=== PATIENT | male | born 1985 | race American Indian/Alaskan Native ===

== ENCOUNTER 2019-08-01 03:29 | Emergency (ER) | payer SELFPAY ==
[2019-08-01 03:47] VITALS: BP 112/80
== END 2019-08-01 04:00 | disposition left against medical advice (07) ==
LOC: ED 03:29
DX: R51 Headache (principal); R42 Dizziness and giddiness; Z53.21 Procedure and treatment not carried out due to patient leaving prior to being seen by health care provider

== ENCOUNTER 2019-09-21 07:38 | Emergency (ER) | payer SELFPAY ==
[2019-09-21 07:44] VITALS: BP 133/83
== END 2019-09-21 08:55 | disposition left against medical advice (07) ==
LOC: ED 07:38
DX: G43.909 Migraine, unspecified, not intractable, without status migrainosus (principal); Z53.21 Procedure and treatment not carried out due to patient leaving prior to being seen by health care provider

== ENCOUNTER 2019-09-23 01:15 | Emergency (ER) | payer SELFPAY ==
[2019-09-23] MEDS ORDERED: LORazepam 2 MG/ML VIAL IM PRN (01:49)
[2019-09-23] MEDS ORDERED: HALOPERIDOL LACTATE 5 MG/1 ML INJ IM PRN (01:49)
--- NOTE | 2019-09-23 01:57 | Emergency Department Report ---
<FRANK BOURGEOIS - Last Filed: 09/23/19 03:45> ED General Adult HPI - General Chief complaint: Psych Stated complaint: SUICIDAL THOUGHTS Time Seen by Provider: 09/23/19 01:39 - Related Data Home Medications Medication Instructions Recorded Confirmed Last Taken No Known Home Medications [No 09/23/19 09/23/19 Unknown Reported Home Medications] Allergies Allergy/AdvReac Type Severity Reaction Status Date / Time No Known Allergies Allergy Unverified 05/09/15 17:08 ED Past Medical Hx - Medications Home Medications: Home Medications Medication Instructions Recorded Confirmed Last Taken Type No Known Home Medications [No 09/23/19 09/23/19 Unknown History Reported Home Medications] ED Medical Decision Making - Lab Data Result diagrams: 09/23/19 02:01 09/23/19 02:01 - Medical Decision Making I have reviewed the labs obtained. CBC chemistry serum toxicology all within normal limits. Urinalysis contaminated sample without overt indication urinary tract infection. Urine toxicology screen positive for amphetamine. Mr. Sarabia is medically clear for psychiatric care. Awaiting treatment recommendations by our psychiatric team. ED Disposition Clinical Impression: General medical exam, Mood disorder Disposition: DC-01 TO HOME OR SELFCARE Condition: Stable Referrals: PRIMARY CARE, [Primary Care Provider] - 3-5 Days <ALFONZO BOWER - Last Filed: 09/24/19 04:16> ED General Adult HPI - General Source: patient, RN notes reviewed, old records reviewed Mode of arrival: Ambulatory Limitations: Other (Patient is quiet, withdrawn, not forthcoming) - History of Present Illness Initial comments: This is a 33-year-old gentleman. This patient is not known to myself prev iously. He presented to triage with a complaint of suicidality. The patient denies physical pain. He indicated to me that he was feeling suicidal. He will not comment on overdose, access to guns or firearms. He is very quiet, sullen and withdrawn. He will not describe exacerbating or relieving factors. He indicated to other members of the nursing team that he was also feeling suicidal. He has not been physically violent. He is not accompanied by friends or family. When asked if there is something that he would particularly like help with, he states "I just do not know." -: unknown Quality: other Consistency: other Improves with: other Worsens with: other ED Review of Systems ROS: Stated complaint: SUICIDAL THOUGHTS Other details as noted in HPI Comment: Sullen and withdrawn Constitutional: see HPI Eyes: as per HPI ENT: as per HPI Respiratory: see HPI Cardiovascular: as per HPI Endocrine: see HPI Gastrointestinal: as per HPI Genitourinary: as per HPI Musculoskeletal: as per HPI Skin: as per HPI Neurological: as per HPI Psychiatric: depression, suicidal thoughts ED Past Medical Hx - Past Medical History Previous Medical History?: Yes Hx Hypertension: No Hx CVA: No Hx Heart Attack/AMI: No Hx Congestive Heart Failure: No Hx Diabetes: No Hx Deep Vein Thrombosis: No Hx Pulmonary Embolism: Yes Hx GERD: No Hx Arthritis: No Hx Headaches / Migraines: Yes Hx Psychiatric Treatment: Yes (depress) Hx Asthma: No Hx COPD: No Hx Dementia: No Hx HIV: No - Surgical History Past Surgical History?: No - Social History Smoking Status: Current Every Day Smoker Substance Use Type: Alcohol ED Physical Exam - General Limitations: Other (Patient not forthcoming) General appearance: alert - Head Head exam: Present: atraumatic, normocephalic - Eye Eye exam: Present: normal appearance, EOMI, other (Visual acuity intact to finger counting and color perception at close distance). Absent: nystagmus - ENT ENT exam: Present: normal exam, normal orophraynx, mucous membranes moist, normal external ear exam - Neck Neck exam: Present: normal inspection, full ROM. Absent: tenderness - Respiratory Respiratory exam: Present: normal lung sounds bilaterally. Absent: respiratory distress - Cardiovascular Cardiovascular Exam: Present: regular rate, normal rhythm, normal heart sounds. Absent: bradycardia, tachycardia, irregular rhythm, systolic murmur, diastolic murmur, rubs, gallop - GI/Abdominal GI/Abdominal exam: Present: soft. Absent: distended, tenderness, guarding, rebound, rigid, pulsatile mass - Rectal Rectal exam: Present: deferred - Extremities Exam Extremities exam: Present: normal inspection, full ROM, other (2+ pulses noted in the bilateral upper and lower extremities. There is no palpable cord. negative Homans sign. Muscular compartments are soft. The pelvis is stable.). Absent: pedal edema, calf tenderness - Back Exam Back exam: Present: normal inspection, full ROM. Absent: tenderness, CVA tenderness (R), CVA tenderness (L), paraspinal tenderness, vertebral tenderness - Neurological Exam Neurological exam: Present: alert, normal gait, other (There is no facial droop. The tongue is midline. Extraocular movements are intact bilaterally. There is 5 out of 5 strength in bilateral upper and lower extremities. Sensation is intact to light touch bilateral upper and lower extremities. There is a normal gait.). Absent: motor sensory deficit - Psychiatric Psychiatric exam: Present: flat affect, suicidal ideation - Skin Skin exam: Present: warm, dry, intact, normal color. Absent: rash ED Course Vital Signs 09/23/19 09/23/19 01:23 08:38 Temperature 98.4 F 98.3 F Pulse Rate 92 H 83 Respiratory 18 18 Rate Blood Pressure 135/98 Blood Pressure 134/78 [Left] O2 Sat by Pulse 98 96 Oximetry - Reevaluation(s) Reevaluation #1: 09/23/19 01:56 Differential diagnosis, including but not limited to: Suicidality, mood disorder, dysthymia, medical clearance for psychiatric placement Assessment and plan: 33-year-old gentleman endorsing suicidality, sullen, withdrawn, not forthcoming about his particular set of circumstances, appears very quiet, he does not demonstrate the ability to care for himself indep endently, and he has endorsed to multiple nursing members that he is feeling suicidal. Psychiatric consultation is requested. Basic laboratory studies ordered, EKG ordered, 1013 executed. Reevaluation #2: 09/23/19 03:10 labs reviewed at this point in time patient does not appear to have an immediate medical contraindication to psychiatric evaluation, consultation or placement at this time ED Medical Decision Making - Lab Data Result diagrams: 09/23/19 02:01 09/23/19 02:01 Vital Signs 09/23/19 01:23 Temperature 98.4 F Pulse Rate 92 H Respiratory 18 Rate Blood Pressure 135/98 O2 Sat by Pulse 98 Oximetry Vital Signs 09/23/19 01:23 Temperature 98.4 F Pulse Rate 92 H Respiratory 18 Rate Blood Pressure 135/98 O2 Sat by Pulse 98 Oximetry Lab Results 09/23/19 09/23/19 09/23/19 Range/Units 01:52 01:52 02:01 WBC 7.7 (4.5-11.0) K/mm3 RBC 4.52 (3.65-5.03) M/mm3 Hgb 13.6 (11.8-15.2) gm/dl Hct 41.0 (35.5-45.6) % MCV 91 (84-94) fl MCH 30 (28-32) pg MCHC 33 (32-34) % RDW 13.8 (13.2-15.2) % Plt Count 193 (140-440) K/mm3 TSH (0.270-4.200) mlU/mL Urine Color Yellow (Yellow) Urine Turbidity Clear (Clear) Urine pH 7.0 (5.0-7.0) Ur Specific [place] 1.025 (1.003-1.030) Urine Protein <15 mg/dl (Negative) mg/dL Urine Glucose (UA) Neg (Negative) mg/dL Urine Ketones Neg (Negative) mg/dL Urine Blood Neg (Negative) Urine Nitrite Neg (Negative) Urine Bilirubin Neg (Negative) Urine Urobilinogen 4.0 (<2.0) mg/dL Ur Leukocyte Esterase Tr (Negative) Urine WBC (Auto) 1.0 (0.0-6.0) /HPF Urine RBC (Auto) 2.0 (0.0-6.0) /HPF U Epithel Cells (Auto) < 1.0 (0-13.0) /HPF Urine Bacteria (Auto) 1+ (Negative) /HPF Urine Mucus 3+ /HPF Salicylates (2.8-20.0) mg/dL Urine Opiates Screen Presumptive negative Urine Methadone Screen Presumptive negative Acetaminophen (10.0-30.0) ug/mL Ur Barbiturates Screen Presumptive negative Ur Phencyclidine Scrn Presumptive negative U Benzodiazepines Scrn Presumptive negative Urine Cocaine Screen Presumptive negative U Marijuana (THC) Screen Presumptive negative Plasma/Serum Alcohol (0-0.07) % 09/23/19 09/23/19 09/23/19 Range/Units 02:01 02:01 02:01 WBC (4.5-11.0) K/mm3 RBC (3.65-5.03) M/mm3 Hgb (11.8-15.2) gm/dl Hct (35.5-45.6) % MCV (84-94) fl MCH (28-32) pg MCHC (32-34) % RDW (13.2-15.2) % Plt Count (140-440) K/mm3 TSH 0.937 (0.270-4.200) mlU/mL Urine Color (Yellow) Urine Turbidity (Clear) Urine pH (5.0-7.0) Ur Specific [place] (1.003-1.030) Urine Protein (Negative) mg/dL Urine Glucose (UA) (Negative) mg/dL Urine Ketones (Negative) mg/dL Urine Blood (Negative) Urine Nitrite (Negative) Urine Bilirubin (Negative) Urine Urobilinogen (<2.0) mg/dL Ur Leukocyte Esterase (Negative) Urine WBC (Auto) (0.0-6.0) /HPF Urine RBC (Auto) (0.0-6.0) /HPF U Epithel Cells (Auto) (0-13.0) /HPF Urine Bacteria (Auto) (Negative) /HPF Urine Mucus /HPF Salicylates < 0.3 L (2.8-20.0) mg/dL Urine Opiates Screen Urine Methadone Screen Acetaminophen < 5.0 L (10.0-30.0) ug/mL Ur Barbiturates Screen Ur Phencyclidine Scrn U Benzodiazepines Scrn Urine Cocaine Screen U Marijuana (THC) Screen Plasma/Serum Alcohol (0-0.07) % 09/23/19 Range/Units 02:01 WBC (4.5-11.0) K/mm3 RBC (3.65-5.03) M/mm3 Hgb (11.8-15.2) gm/dl Hct (35.5-45.6) % MCV (84-94) fl MCH (28-32) pg MCHC (32-34) % RDW (13.2-15.2) % Plt Count (140-440) K/mm3 TSH (0.270-4.200) mlU/mL Urine Color (Yellow) Urine Turbidity (Clear) Urine pH (5.0-7.0) Ur Specific [place] (1.003-1.030) Urine Protein (Negative) mg/dL Urine Glucose (UA) (Negative) mg/dL Urine Ketones (Negative) mg/dL Urine Blood (Negative) Urine Nitrite (Negative) Urine Bilirubin (Negative) Urine Urobilinogen (<2.0) mg/dL Ur Leukocyte Esterase (Negative) Urine WBC (Auto) (0.0-6.0) /HPF Urine RBC (Auto) (0.0-6.0) /HPF U Epithel Cells (Auto) (0-13.0) /HPF Urine Bacteria (Auto) (Negative) /HPF Urine Mucus /HPF Salicylates (2.8-20.0) mg/dL Urine Opiates Screen Urine Methadone Screen Acetaminophen (10.0-30.0) ug/mL Ur Barbiturates Screen Ur Phencyclidine Scrn U Benzodiazepines Scrn Urine Cocaine Screen U Marijuana (THC) Screen Plasma/Serum Alcohol < 0.01 (0-0.07) % - EKG Data -: EKG Interpreted by Me EKG shows normal: sinus rhythm Rate: normal - EKG Data 09/23/19 02:59 Sinus rhythm, 74 bpm, normal axis, left ventricular voltage, QTC 405 ms, motion artifact. Early repolarization, not consistent with STEMI Critical care attestation.: If time is entered above; I have spent that time in minutes in the direct care of this critically ill patient, excluding procedure time. ED Disposition Is pt being admited?: No Does the pt Need Aspirin: No
[2019-09-23 02:10] LABS: Benzodiazepines Screen,Urine PRESUMPTIVE NEGATIVE; Cannabinoid Screen,Urine PRESUMPTIVE NEGATIVE; Cocaine Screen,Urine PRESUMPTIVE NEGATIVE; Methadone Screen,Urine PRESUMPTIVE NEGATIVE; Opiate Screen,Urine PRESUMPTIVE NEGATIVE
[2019-09-23 02:11] LABS: Bacteria,Urine 1+ /HPF (Negative); Bilirubin,Urine NEG (Negative); Blood,Urine NEG (Negative); Color,Urine Yellow (Yellow); Mucus,Urine 3+ /HPF; Protein,Urine <15 mg/dL mg/dL (Negative)
[2019-09-23 02:37] LABS: Hemoglobin 13.6 gm/dl (11.8-15.2); Mean Corpuscular HGB Conc 33 % (32-34); Mean Corpuscular Volume 91 fl (84-94); Platelet Count 193 K/mm3 (140-440); Red Blood Count 4.52 M/mm3 (3.65-5.03); Red Cell Distribution Width 13.8 % (13.2-15.2)
[2019-09-23 03:08] LABS: BUN/Creatinine Ratio 16; Blood Urea Nitrogen 14 mg/dL (9-20); Calcium 9.5 mg/dL (8.4-10.2); Hemolysis Index 3
[2019-09-23 03:09] LABS: Amphetamine Screen,Urine PRESUMPTIVE POSITIVE
[2019-09-23 08:40] VITALS: BP 134/78
== END 2019-09-23 13:06 | disposition home or self-care (01) ==
LOC: ED 01:15
DX: F32.9 Major depressive disorder, single episode, unspecified (principal); F17.200 Nicotine dependence, unspecified, uncomplicated; Z86.711 Personal history of pulmonary embolism
CPT/HCPCS: 36415; 80048; 80307; 80320; 81001; 82550; 83735; 84443; 85027; 93005; 93010; G0480

== ENCOUNTER 2019-10-03 01:03 | Emergency (ER) | payer SELFPAY ==
[2019-10-03 01:17] VITALS: BP 141/77
--- NOTE | 2019-10-03 01:36 | Emergency Department Report ---
ED Headache HPI - General Chief Complaint: Headache Stated Complaint: MIGRAINE Time Seen by Provider: 10/03/19 01:32 - History of Present Illness Initial Comments: 34-year-old F [place] male with a 12 to 13-year history of migraine headaches presents emerged department complaining of a normal migraine flareup that is been present for the last several hours. Symptoms is associated with nausea states he is been having some issues with headaches off and on. Reports no fever, chills, sweats no chest pain no palpitations no blurry vision. He requested to discontinue the history taking due to him being irritated about another situation states that he feels it is fine Associated Symptoms: denies: nausea/vomiting, nasal congestion, nasal drainage, sinus infection, stiff neck, vision changes, weakness Allergies/Adverse Reactions: Allergies No Known Allergies Allergy (Verified 10/03/19 01:11) Home Medications: Ambulatory Orders Butalb/Acetaminophen/Caffeine [Fioricet 50-300-40 mg CAP] 1 cap PO Q6HR PRN #20 cap 10/03/19 ED Review of Systems ROS: Stated complaint: MIGRAINE Other details as noted in HPI Comment: All other systems reviewed and negative ED Past Medical Hx - Past Medical History Hx Hypertension: No Hx CVA: No Hx Heart Attack/AMI: No Hx Congestive Heart Failure: No Hx Diabetes: No Hx Deep Vein Thrombosis: No Hx Pulmonary Embolism: Yes Hx GERD: No Hx Arthritis: No Hx Headaches / Migraines: Yes Hx Psychiatric Treatment: Yes (depression) Hx Asthma: No Hx COPD: No Hx Dementia: No Hx HIV: No - Surgical History Past Surgical History?: No - Social History Smoking Status: Current Every Day Smoker Substance Use Type: Alcohol - Medications Home Medications: Home Medications Medication Instructions Recorded Confirmed Last Taken Type Butalb/Acetaminophen/Caffeine 1 cap PO Q6HR PRN #20 cap 10/03/19 Unknown Rx [Fioricet 50-300-40 mg CAP] ED Physical Exam - General Limitations: No Limitations General appearance: alert, in no apparent distress - Head Head exam: Present: atraumatic, normocephalic - Eye Eye exam: Present: normal appearance, PERRL, EOMI, other (Negative funduscopic examination). Absent: nystagmus Pupils: Present: normal accommodation - ENT ENT exam: Present: normal exam, normal orophraynx, mucous membranes moist - Neck Neck exam: Present: normal inspection, full ROM, other (No obvious JVD) - Respiratory Respiratory exam: Absent: respiratory distress - Cardiovascular Cardiovascular Exam: Present: regular rate, normal rhythm. Absent: systolic murmur, diastolic murmur, rubs, gallop - Rectal Rectal exam: Present: deferred - Extremities Exam Extremities exam: Present: normal inspection, full ROM - Back Exam Back exam: Present: normal inspection, full ROM - Neurological Exam Neurological exam: Present: alert, oriented X3, normal gait - Psychiatric Psychiatric exam: Present: normal affect, normal mood. Absent: homicidal ideation, suicidal ideation - Skin Skin exam: Present: warm, dry, intact, normal color. Absent: rash ED Course Vital Signs 10/03/19 01:13 Temperature 97.9 F Pulse Rate 97 H Respiratory 18 Rate Blood Pressure 141/77 O2 Sat by Pulse 97 Oximetry ED Medical Decision Making - Medical Decision Making This patient presents with a headache most consistent with migraine. Differential diagnosis includes migraine versus tension type headache. No headache red flags. Neurologic exam without evidence of meningismus, focal neurologic findings.Based on the patient's history and physical there is very low clinical suspicion for significant intracranial pathology. The headache was NOT sudden onset, NOT maximal at onset, there are NO neurologic findings, the patient does NOT have a fever, the patient does NOT have any jaw claudication, the patient does NOT endorse a clotting disorder, patient DENIES any trauma or eye pain and the headache is NOT associated with dizziness or ataxia. Presentation not consistent with acute intracranial bleed to include SAH (lack of risk factors, headache history). Presentation not consistent with acute [employer] infection to include meningitis or brain abscess, Temporal arteritis unlikely, as is acute angle closure glaucoma given history and physical findings. Presentation not consistent with other acute, emergent causes of headache at this time. Plan to treat symptomatically with pain medication. No indication for imaging/LP at this time. Plan: pain medication, CT brain deferred due to the history, serial reassessment Critical care attestation.: If time is entered above; I have spent that time in minutes in the direct care of this critically ill patient, excluding procedure time. ED Disposition Clinical Impression: Cephalgia, Migraine Disposition: DC-01 TO HOME OR SELFCARE Is pt being admited?: No Does the pt Need Aspirin: No Condition: Stable Instructions: Migraine Headache (ED), Acute Headache (ED) Prescriptions: Butalb/Acetaminophen/Caffeine [Fioricet 50-300-40 mg CAP] 1 cap PO Q6HR PRN #20 cap PRN Reason: Headache Referrals: [facility] [Provider Group] - 3-5 Days CIARA VILLALBA MD [Staff Physician] - 3-5 Days
== END 2019-10-03 02:08 | disposition home or self-care (01) ==
LOC: ED 01:03
DX: G43.909 Migraine, unspecified, not intractable, without status migrainosus (principal); F32.9 Major depressive disorder, single episode, unspecified; F17.200 Nicotine dependence, unspecified, uncomplicated; Z79.899 Other long term (current) drug therapy
CPT/HCPCS: 99281

== ENCOUNTER 2020-02-29 17:48 | Emergency (ER) | payer SELFPAY ==
--- NOTE | 2020-02-29 20:32 | Emergency Department Report ---
Blank Doc - Documentation Documentation: 34-year-old male that presents with generlized weakness, fatigue, fever, chills, and tachycardia. Pt is homeless and stated has been in the heat for the past few days. This initial assessment/diagnostic orders/clinical plan/treatment(s) is/are subject to change based on patient's health status, clinical progression and re- assessment by fellow clinical providers in the ED. Further treatment and workup at subsequent clinical providers discretion. Patient/guardians urged not to elope from the ED as their condition may be serious if not clinically assessed and managed. Initial orders include: 1- Patient sent to [facility] for further evaluation and treatment 2- labs 3- xrays
[2020-02-29] MEDS ORDERED: ACETAMINOPHEN 325 MG TAB PO ONE (20:33)
[2020-02-29] MEDS ORDERED: ACETAMINOPHEN 325 MG TAB ONE (20:34)
--- NOTE | 2020-02-29 21:19 | XRay Report ---
CHEST 2 VIEWS INDICATION / CLINICAL INFORMATION: fever/cough. COMPARISON: None available. FINDINGS: SUPPORT DEVICES: None. HEART / MEDIASTINUM: No significant abnormality. LUNGS / PLEURA: No significant pulmonary or pleural abnormality. No pneumothorax. ADDITIONAL FINDINGS: No significant additional findings. IMPRESSION: 1. No acute findings. Signer Name: Hai Dobbs MD Signed: 02/29/2020 9:15 PM Workstation Name: [id number]
[2020-02-29 21:45] LABS: Hematocrit 41.8 % (35.5-45.6); Hemoglobin 14.1 gm/dl (11.8-15.2); Mean Corpuscular HGB Conc 34 % (32-34); Mean Corpuscular Volume 92 fl (84-94); Platelet Count 169 K/mm3 (140-440); Red Blood Count 4.53 M/mm3 (3.65-5.03); Red Cell Distribution Width 13.6 % (13.2-15.2)
[2020-02-29 22:11] LABS: Alanine Aminotransferase 14 units/L (7-56); Albumin 4.6 g/dL (3.9-5); BUN/Creatinine Ratio 11; Blood Urea Nitrogen 11 mg/dL (9-20); Calcium 9.1 mg/dL (8.4-10.2); Hemolysis Index 5
--- NOTE | 2020-02-29 22:30 | Emergency Department Report ---
ED General Adult HPI - General Chief complaint: Weakness Stated complaint: HEAT EXHAUSTION Time Seen by Provider: 02/29/20 20:29 Source: patient, EMS Mode of arrival: Ambulatory Limitations: No Limitations - History of Present Illness Initial comments: 34-year-old male presents to ED with report of 2-day history of fever. Patient also reports generalized weakness, nausea and vomiting, mild cough. Patient denies shortness of breath, loss of smell or taste, diarrhea. -: days(s) (2) Severity scale (0 -10): 10 Consistency: constant Improves with: none Worsens with: none Associated Symptoms: cough, fever/chills, nausea/vomiting. denies: shortness of breath - Related Data Previous Rx's Medication Instructions Recorded Last Taken Type Butalb/Acetaminophen/Caffeine 1 cap PO Q6HR PRN #20 cap 10/03/19 Unknown Rx [Fioricet 50-300-40 mg CAP] Ondansetron [Zofran Odt] 4 mg PO Q8HR PRN #20 tab.rapdis 02/29/20 Unknown Rx Allergies Allergy/AdvReac Type Severity Reaction Status Date / Time No Known Allergies Allergy Verified 10/03/19 01:11 ED Review of Systems ROS: Stated complaint: HEAT EXHAUSTION Other details as noted in HPI Comment: All other systems reviewed and negative Constitutional: chills, fever ENT: denies: throat pain Respiratory: cough. denies: shortness of breath Gastrointestinal: abdominal pain, nausea, vomiting ED Past Medical Hx - Past Medical History Previous Medical History?: Yes Hx Hypertension: No Hx CVA: No Hx Heart Attack/AMI: No Hx Congestive Heart Failure: No Hx Diabetes: No Hx Deep Vein Thrombosis: No Hx Pulmonary Embolism: Yes Hx GERD: No Hx Arthritis: No Hx Headaches / Migraines: Yes Hx Psychiatric Treatment: Yes (depression) Hx Asthma: No Hx COPD: No Hx Dementia: No Hx HIV: No - Surgical History Past Surgical History?: No - Social History Smoking Status: Unknown if ever smoked Substance Use Type: None - Medications Home Medications: Home Medications Medication Instructions Recorded Confirmed Last Taken Type Butalb/Acetaminophen/Caffeine 1 cap PO Q6HR PRN #20 cap 10/03/19 Unknown Rx [Fioricet 50-300-40 mg CAP] Ondansetron [Zofran Odt] 4 mg PO Q8HR PRN #20 tab.rapdis 02/29/20 Unknown Rx ED Physical Exam - General Limitations: No Limitations General appearance: alert, in no apparent distress - Head Head exam: Present: atraumatic, normocephalic - Eye Eye exam: Present: normal appearance, EOMI - ENT ENT exam: Present: mucous membranes moist - Neck Neck exam: Present: normal inspection - Respiratory Respiratory exam: Present: normal lung sounds bilaterally. Absent: respiratory distress - Cardiovascular Cardiovascular Exam: Present: regular rate, normal rhythm - GI/Abdominal GI/Abdominal exam: Present: soft. Absent: distended, tenderness - Extremities Exam Extremities exam: Present: normal inspection - Neurological Exam Neurological exam: Present: alert, oriented X3 - Psychiatric Psychiatric exam: Present: normal affect, normal mood - Skin Skin exam: Present: warm, dry, intact, normal color ED Course Vital Signs 02/29/20 02/29/20 02/29/20 18:36 20:35 23:05 Temperature 99.5 F 99.1 F Pulse Rate 121 H 98 H Respiratory 20 18 16 Rate Blood Pressure 144/99 Blood Pressure 119/86 [Left] O2 Sat by Pulse 99 100 Oximetry ED Medical Decision Making - Lab Data Result diagrams: 02/29/20 20:56 02/29/20 20:56 - Radiology Data Radiology results: report reviewed, image reviewed - Medical Decision Making 34-year-old male with a fever. Chest x-ray negative. Labs unremarkable. Spoke with patient about possibility of COVID-19 and need for outpatient COVID testing. Patient has been advised to quarantine for total of 14 days. Return precautions given. - Differential Diagnosis Viral illness, pneumonia, COVID-19 Critical care attestation.: If time is entered above; I have spent that time in minutes in the direct care of this critically ill patient, excluding procedure time. ED Disposition Clinical Impression: Viral illness, Suspected 2019 novel coronavirus infection Disposition: DC-01 TO HOME OR SELFCARE Is pt being admited?: No Condition: Stable Instructions: COVID-19, Viral Syndrome (ED) Additional Instructions: Your chest xray is normal. Your oxygen level is normal. It is possible that you may have COVID-19. Please quarantine for a total of 14 days. You also need to obtain outpatient testing for COVID-19. Some resources will be provided. Prescriptions: Ondansetron [Zofran Odt] 4 mg PO Q8HR PRN #20 tab.rapdis PRN Reason: Vomiting Referrals: PRIMARY CARE, [Primary Care Provider] - 3-[address] [facility] [Outside] - 3-5 Days [facility] [Provider Group] - 3-5 Days Time of Disposition: 23:11
[2020-02-29 23:06] VITALS: BP 119/86
[2020-03-01 01:51] LABS: Basophils % (Manual) 0 % (0.0-1.8); Eosinophils % (Manual) 0 % (0.0-4.3); Total Cells Counted 100
[2020-03-01 01:52] LABS: Platelet Estimate Consistent w Auto
== END 2020-02-29 23:34 | disposition home or self-care (01) ==
LOC: ED 17:48
DX: B34.9 Viral infection, unspecified (principal); Z20.828 Contact with and (suspected) exposure to other viral communicable diseases; G43.909 Migraine, unspecified, not intractable, without status migrainosus; F32.9 Major depressive disorder, single episode, unspecified; Z86.711 Personal history of pulmonary embolism; Z79.899 Other long term (current) drug therapy
CPT/HCPCS: 36415; 71046; 80053; 85007; 85025